=== PATIENT | male | born 1960 | race Caucasian/White ===

== ENCOUNTER 2020-08-17 15:05 | Inpatient (IN) | payer OTHER ==
[~2020-08-17] VITALS: Ht 182.9 cm; Wt 107.4 kg
[2020-08-17] MEDS ORDERED: IV NORMAL SALINE 1000ML BAG 1,000 ML IV ONE (15:30)
[2020-08-17] MEDS ORDERED: ASPIRIN 325 MG TABLET PO ONE (15:30)
[2020-08-17 15:46] LABS: BASO % 1 % (0-3); EOS # 0.1 x10^3/uL (0.0-0.7); EOS % 2 % (0-3); HEMATOCRIT 47.8 % (39.0-53.0); HEMOGLOBIN 16.3 g/dL (13.0-17.5); LYMPH # 2.5 x10^3/uL (1.0-4.8); LYMPH % 38 % (24-48); MEAN CORPUSCULAR HEMOGLOBIN 30 pg (25-35); MEAN CORPUSCULAR HGB CONC 34 g/dL (31-37); MEAN CORPUSCULAR VOLUME 89 fL (79-100); MONO # 0.6 x10^3/uL (0.0-1.1); MONO % 9 % (0-9); NEUT # 3.4 x10^3/uL (1.8-7.7); NEUT % 51 % (31-73); PLATELET COUNT 226 x10^3/uL (140-400); RED BLOOD COUNT 5.35 x10^6/uL (4.30-5.70); RED CELL DISTRIBUTION WIDTH 13.1 % (11.5-14.5); WHITE BLOOD COUNT 6.7 x10^3/uL (4.0-11.0)
[2020-08-17 15:54] LABS: CALCIUM 9.7 mg/dL (8.5-10.1); CREATININE 1.1 mg/dL (0.7-1.3); GFR 68.8; PARTIAL THROMBOPLASTIN TIME 26 SEC (24-38); POTASSIUM 4.1 mmol/L (3.5-5.1); PROTHROMBIN TIME PATIENT 13.2 SEC (11.7-14.0)
[2020-08-17 15:57] LABS: D-DIMER < 0.27 ug/mlFEU (0.00-0.50)
[2020-08-17 16:00] LABS: ALBUMIN 4.4 g/dL (3.4-5.0); ALBUMIN/GLOBULIN RATIO 1.3 (1.0-1.7); MAGNESIUM 2.1 mg/dL (1.8-2.4); TOTAL BILIRUBIN 1.4 mg/dL (0.2-1.0); TOTAL PROTEIN 7.8 g/dL (6.4-8.2)
--- NOTE | 2020-08-17 16:07 | RAD ---
XR CHEST 1V 08/17/2020 3:46 PM INDICATION: Palpitations COMPARISON: None available TECHNIQUE: Portable frontal view of the chest is provided. FINDINGS: The cardiomediastinal silhouette is within normal limits. Lungs are clear. 10 mm nodular opacity in t he right lower lobe favors the nipple shadow. There are no significant pleural effusions. There is no pulmonary vascular congestion. No pneumothora x. No suspicious osseous abnormality. IMPRESSION: There is no acute cardiopulmonary process. 10 mm nodular opacity in the right lower lobe favors nipple shadow. If there is persistent clinical c oncern, repeat imaging with nipple markers could be of benefit. Electronically signed by: Ashley Leach MD (08/17/2020 4:05 PM) [place]
--- NOTE | 2020-08-17 17:11 | PHYS DOC ---
Past Medical History Past Medical History: No Pertinent History Past Surgical History: Other Additional Past Surgical Histo: acl replacement Smoking Status: Never Smoker Alcohol Use: Occasionally Drug Use: None General Adult EDM: Chief Complaint: OTHER COMPLAINTS HPI: HPI: 59 year old male presents with history of concern over irregular heartbeat after undergoing a cardiac echo just prior to arrival. Patient reports he had recently had an appointment with his PCP- Dr. Jain and was noted to have an irregular heartbeat. Patient reports an EKG was then performed by his PCP and was sent to have a cardiac echo performed due to concern for the irregularity. Patient denies SOA or chest pain. Denies palpitations, dizziness, or lightheadedness. Denies fever/chills. Denies known exposure to COVID-19. Review of Systems: Review of Systems: Constitutional: Denies fever or chills Eyes: Denies redness or eye pain HENT: Denies nasal congestion or sore throat Respiratory: Denies cough or shortness of breath Cardiovascular: Denies chest pain or palpitations GI: Denies abdominal pain, nausea, or vomiting : Denies dysuria or hematuria Musculoskeletal: Denies back pain or joint pain Integument: Denies rash or skin lesions Neurologic: Denies headache, focal weakness or sensory changes Complete systems were reviewed and found to be within normal limits, except as documented in this note. Current Medications: Current Medications Medications (Trade) Dose Ordered Sig/[facility] Start Time Stop Time Status Last Admin Dose Admin Aspirin (Jaleesa Aspirin) 325 mg 1X ONCE 08/17/20 15:30 08/17/20 15:40 DC 08/17/20 15:47 325 MG Diltiazem HCl (Cardizem Iv Push) 20 mg 1X ONCE 08/17/20 15:30 08/17/20 15:40 DC 08/17/20 15:48 20 MG Diltiazem HCl 125 mg/Sodium Chloride 125 ml @ 10 mls/hr 1X ONCE 08/17/20 15:30 08/18/20 03:59 08/17/20 15:47 10 MLS/HR Sodium Chloride 1,000 ml @ 1,000 mls/hr 1X ONCE 08/17/20 15:30 08/17/20 16:29 DC 08/17/20 15:48 1,000 MLS/HR Allergies: Allergies: Allergies Coded Allergies Type Severity Reaction Last Updated Verified No Known Drug Allergies 2/5/21 No Physical Exam: PE: Constitutional: Well developed, well nourished, no acute distress, non-toxic appearance HENT: Normocephalic, atraumatic Eyes: Conjunctiva normal, no discharge Neck: Normal range of motion, no tenderness, supple Lungs & Thorax: No respiratory distress, equal chest rise and fall Abdomen: Soft, no tenderness Skin: Warm, dry, no erythema, no rash Extremities: No tenderness, ROM intact, no edema Neurologic: Alert and oriented X 3, normal motor function, normal sensory function, no focal deficits noted Psychologic: Affect normal, judgment normal Current Patient Data: Labs: Laboratory Tests Test 08/17/20 15:35 White Blood Count 6.7 x10^3/uL (4.0-11.0) Red Blood Count 5.35 x10^6/uL (4.30-5.70) Hemoglobin 16.3 g/dL (13.0-17.5) Hematocrit 47.8 % (39.0-53.0) Mean Corpuscular Volume 89 fL (79-100) Mean Corpuscular Hemoglobin 30 pg (25-35) Mean Corpuscular Hemoglobin Concent 34 g/dL (31-37) Red Cell Distribution Width 13.1 % (11.5-14.5) Platelet Count 226 x10^3/uL (140-400) Neutrophils (%) (Auto) 51 % (31-73) Lymphocytes (%) (Auto) 38 % (24-48) Monocytes (%) (Auto) 9 % (0-9) Eosinophils (%) (Auto) 2 % (0-3) Basophils (%) (Auto) 1 % (0-3) Neutrophils # (Auto) 3.4 x10^3/uL (1.8-7.7) Lymphocytes # (Auto) 2.5 x10^3/uL (1.0-4.8) Monocytes # (Auto) 0.6 x10^3/uL (0.0-1.1) Eosinophils # (Auto) 0.1 x10^3/uL (0.0-0.7) Basophils # (Auto) 0.0 x10^3/uL (0.0-0.2) Prothrombin Time 13.2 SEC (11.7-14.0) Prothrombin Time INR 1.0 (0.8-1.1) Activated Partial Thromboplast Time 26 SEC (24-38) D-Dimer (Patricia) < 0.27 ug/mlFEU Sodium Level 141 mmol/L (136-145) Potassium Level 4.1 mmol/L (3.5-5.1) Chloride Level 103 mmol/L (98-107) Carbon Dioxide Level 29 mmol/L (21-32) Anion Gap 9 (6-14) Blood Urea Nitrogen 12 mg/dL (8-26) Creatinine 1.1 mg/dL (0.7-1.3) Estimated GFR (Cockcroft-Gault) 68.8 BUN/Creatinine Ratio 11 (6-20) Glucose Level 107 mg/dL (70-99) H Calcium Level 9.7 mg/dL (8.5-10.1) Magnesium Level 2.1 mg/dL (1.8-2.4) Total Bilirubin 1.4 mg/dL (0.2-1.0) H Aspartate Amino Transferase (AST) 23 U/L (15-37) Alanine Aminotransferase (ALT) 58 U/L (16-63) Alkaline Phosphatase 57 U/L (46-116) Troponin I Quantitative < 0.017 ng/mL (0.000-0.055) VK-Xbi-G-Type Natriuretic Peptide 386 pg/mL (0-124) H Total Protein 7.8 g/dL (6.4-8.2) Albumin 4.4 g/dL (3.4-5.0) Albumin/Globulin Ratio 1.3 (1.0-1.7) Lipase 90 U/L (73-393) Laboratory Tests 08/17/20 15:35 Laboratory Tests 08/17/20 15:35 Vital Signs: Vital Signs Date Time Temp Pulse Resp B/P (MAP) Pulse Ox O2 Delivery O2 Flow Rate FiO2 08/17/20 15:48 160 150/101 08/17/20 15:13 98.6 18 99 Room Air 98.6 EKG: EKG: @1525 Afib RVR at 140bpm, NO ST elevation, QRS 78ms, QT/QTc 292/449ms Radiology/Procedures: Radiology/Procedures: PROCEDURE: PORTABLE CHEST 1V XR CHEST 1V 08/17/2020 3:46 PM INDICATION: Palpitations COMPARISON: None available TECHNIQUE: Portable frontal view of the chest is provided. FINDINGS: The cardiomediastinal silhouette is within normal limits. Lungs are clear. 10 mm nodular opacity in the right lower lobe favors the nipple shadow. There are no significant pleural effusions. There is no pulmonary vascular congestion. No pneumothorax. No suspicious osseous abnormality. IMPRESSION: There is no acute cardiopulmonary process. 10 mm nodular opacity in the right lower lobe favors nipple shadow. If there is persistent clinical concern, repeat imaging with nipple markers could be of benefit. Electronically signed by: Ashley Leach MD (08/17/2020 4:05 PM) [facility] Course & Med Decision Making: Course & Med Decision Making Pertinent Labs and Imaging studies reviewed. (See chart for details) Patient presents with concern for "irregular heartbeat". EKG noted patent with Afib RVR. Cardizem bolus/gtt initiated with rate control. Labs obtained and posted to chart. Troponin and D-dimer WNL. CXR without acute process. Patient requiring admission for further evaluation and treatment. Discussed with Dr. Jain (PCP) who is in agreement with admission. Discussed with Dr. Lin (cardiology) who is in agreement with consultation. Discussed findings and plan with patient, who acknowledges understanding and agreement. Dragon Disclaimer: Dragon Disclaimer: This electronic medical record was generated, in whole or in part, using a voice recognition dictation system. Departure Departure Impression: Primary Impression: Atrial fibrillation with RVR Disposition: ADMITTED INPT THIS HOSP Admitting Physician: Andrew Jain Condition: STABLE Referrals: ANDREW JAIN MD (PCP) Critical Care Time Critical care time was 30 minutes which includes time at bedside, spent in discussion of patient's care with specialists and/or family members, with interpretation of laboratory and/or radiological studies and is exclusive of procedures. COSMO HERNANDEZ DO Aug 17, 2020 17:11
[2020-08-17] MEDS: RIVAROXABAN 10 MG TABLET. PO SCH (18:26)
[2020-08-17 19:40] VITALS: BP 147/102
[2020-08-17] MEDS ORDERED: DOXY100C2 PO (20:55)
[2020-08-17 23:00] VITALS: BP 126/65
[2020-08-18 03:00] VITALS: BP 132/68
[2020-08-18 07:00] VITALS: BP 97/53
[2020-08-18 11:20] VITALS: BP 125/82
--- NOTE | 2020-08-18 12:22 | PDOC ---
Provider Note Date of Service: DATE: 08/18/20 TIME: 12:20 Provider Note [id number] Justifications for Admission Other Justification ANDREW JAIN MD Aug 18, 2020 12:22
--- NOTE | 2020-08-18 14:34 | HP ---
ADMIT DATE: 08/17/2020 CHIEF COMPLAINT: Atrial fibrillation. HISTORY OF PRESENT ILLNESS: The patient is a 59-year-old white male who was seen by me in the office about a week ago for facial rash and was found to have an irregular heart rate which was per EKG, atrial fibrillation with a reasonably controlled rate. Echocardiogram was ordered and he was placed on no meds that time. The echocardiogram was done on day of admission and report is pending. He has had no chest pain, shortness of breath and alcohol use or any other particular symptoms and is unaware that he has dysrhythmia. PAST MEDICAL HISTORY: He is taking doxycycline for recently diagnosed acne rosacea. No other serious medical problems. ALLERGIES: No allergies. MEDICATIONS: No medications. SOCIAL HISTORY: He is a minimal drinker and nonsmoker. He is , physically active, employed. FAMILY HISTORY: Unremarkable. REVIEW OF SYSTEMS: No other specific complaints including shortness of breath, chest pain, dizziness, presyncope or other complaints. OBJECTIVE: ENT: All unremarkable. NECK: No masses, nodes or bruits. LUNGS: Clear. CARDIOVASCULAR: Irregular rate, rate 90-110. No murmurs heard. ABDOMEN: Benign. EXTREMITIES: Good pedal and radial pulses. No joint or skin lesions at this time. Facial rash is cleared. NEUROLOGIC: Physiologic. ASSESSMENT: Atrial fibrillation, etiology and duration undetermined. His CHADS-VASc 2 risks factors are low and he is not on anticoagulation at this time. PLAN: We will switch to oral diltiazem at this time. We will continue Xarelto dose for now in advance of the possibility of outpatient cardioversion. Report of the echocardiogram is pending at this time as well. Need to make sure there is no sign of PFO or occult mitral valve disease. ANDREW JAIN MD DR: IZZY/magan JOB#: [id number] / [id number]
[2020-08-18 15:00] VITALS: BP 137/89
[2020-08-18] MEDS ORDERED: AMIODARONE 150 MG in IV DEXTROSE 5% 100ML 100 ML IV ONE (15:00)
[2020-08-18] MEDS ORDERED: RIVAROXABAN 10 MG TABLET. PO ONE (15:00)
[2020-08-18] MEDS: RIVAROXABAN 10 MG TABLET. PO SCH (15:28)
[2020-08-18] MEDS: AMIODARONE HCL 200 MG TABLET. PO SCH (15:28)
--- NOTE | 2020-08-18 16:14 | PDOC2 ---
CARDIOLOGY CONSULT NOTE DATE OF SERVICE: DATE: 08/18/20 TIME: 16:12 CHIEF COMPLAINT: Abnormal echocardiogram HPI: Aleksey is a 59-year-old man who was sent to the ER yesterday after an abnormal echocardiogram. Last week he was noted to have irregular heart tones and was sent for an echocardiogram after his PCP felt that he was noted to be in atrial fibrillation. This was confirmed on the EKG upon admission. Due to A. fib with RVR he was admitted for further evaluation and treatment in the setting of an abnormal echocardiogram with ejection fraction of 30 to 35%. He currently denies any symptoms whatsoever. He has no risk factors such as hypertension, sleep apnea or age. PMHX: None SOCHX: Denies any alcohol, tobacco or illicit drug use. 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 He lives alone. FAMHX: Noncontributory. CURRENT MEDS: Current Medications Medications (Trade) Dose Ordered Sig/Simon Route PRN Reason Start Time Stop Time Status Last Admin Dose Admin Rivaroxaban (Xarelto) 20 mg DAILYWSUP PO 08/17/20 18:00 08/18/20 15:28 Diltiazem HCl (Cardizem 24hr Cd) 240 mg DAILY PO 08/18/20 12:30 08/18/20 13:31 Amiodarone HCl 150 mg/Dextrose 103 ml @ 618 mls/hr 1X ONCE IV 08/18/20 15:00 08/18/20 15:09 DC 08/18/20 15:27 Amiodarone HCl (Cordarone) 400 mg DAILY PO 08/18/20 15:30 08/18/20 15:28 Rivaroxaban (Xarelto) 10 mg ONCE ONCE PO 08/18/20 15:00 08/18/20 15:13 DC 08/18/20 15:27 ALLERGIES: Allergies Coded Allergies Type Severity Reaction Last Updated Verified No Known Drug Allergies 08/17/20 No ROS: Negative for 10-14 systems reviewed unless otherwise mentioned above in HPI PHYSICAL EXAM: Vital Signs/I&O: Vital Signs Date Time Temp Pulse Resp B/P (MAP) Pulse Ox O2 Delivery O2 Flow Rate FiO2 08/18/20 15:28 98 125/82 08/18/20 15:00 98.1 18 97 Room Air 98.1 I & O 08/17/20 08/17/2008/18/21 15:00 23:00 07:00 Intake Total 1137.69 ml 47 ml Output Total 1050 ml Balance 1137.69 ml -1003 ml Physical Exam: The patient appeared well nourished and normally developed. Head exam is unremarkable. No scleral icterus or corneal arcus noted. Neck is without jugular venous distension, thyromegaly, or carotid bruits. Carotid upstrokes are brisk bilaterally. Lungs are clear to auscultation and percussion. Cardiac exam reveals the PMI to be normally sized and situated. Rhythm is irregular. First and second heart sounds normal. No murmurs, rubs or gallops. Abdominal exam reveals normal bowel sounds, no masses, no organomegaly and no aortic enlargement. Extremities are nonedematous and both femoral and pedal pulses are normal. Msk: No traumua Neuro: No focal deficits DIAGNOSTIC TESTING: EKG, telemetry reviewed. Echo reviewed. Labs reviewed. ASSESSMENT: 1. New onset atrial fibrillation with rapid ventricular response currently suboptimally controlled PLAN: 1. I discussed with the patient the prognosis, etiology and various treatment options for atrial fibrillation. Specifically we discussed conservative management with medications versus cardioversion. He wishes to continue medical therapy. Plan for initiation of amiodarone for better rate control and to help attain sinus rhythm. Continue anticoagulation for the next 3 months or so and reassess his A. fib burden and need for cardioversion on outpatient basis. We will see him in the office in 6 weeks. We will plan to keep him for another 24 hours for better rate control as at rest he still has a heart rate of 1 20-1 30. DIONICIO AGUILAR MD Aug 18, 2020 16:14
[2020-08-18 19:35] VITALS: BP 132/89
[2020-08-18 23:30] VITALS: BP 122/76
[2020-08-19 03:40] VITALS: BP 121/87
[2020-08-19 07:00] VITALS: BP 124/77
[2020-08-19] MEDS: AMIODARONE HCL 200 MG TABLET. PO SCH (08:23)
--- NOTE | 2020-08-19 10:15 | PDOC ---
Provider Note Date of Service: DATE: 08/19/20 TIME: 10:12 Provider Note [id number] Justifications for Admission Other Justification ANDREW JAIN MD Aug 19, 2020 10:15
[2020-08-19 10:18] VITALS: BP 135/89
[2020-08-19] MEDS ORDERED: METO50TA6 PO (10:22)
[2020-08-19] MEDS ORDERED: RIVA20TA2 PO (10:23)
--- NOTE | 2020-08-19 10:33 | DS ---
DATE OF DISCHARGE: 08/19/2020 CHIEF COMPLAINT: Atrial fibrillation with rapid ventricular response. HOSPITAL SUMMARY: This is a 59-year-old white male with known preexisting atrial fibrillation of unknown duration, had an echocardiogram on the day of admission, which showed mildly increased heart rate and ejection fraction reduced at 30-35%. There was no valvular disease or pericardial disease noted. Laboratory studies and x-ray were clear as well and preexisting labs including TSH were normal. He was admitted, given IV diltiazem, followed by oral diltiazem and Dr. Lin added amiodarone as well. He is on Xarelto now, even though he is relatively low risk for emboli and he will be followed as an outpatient. We used the of beta robin and check him 1 week to see if his heart rate improves and repeat an echo at a later time. He may need cardioversion later if his atrial fibrillation persists. Reduced ejection fraction could be related to the atrial fibrillation itself and will be followed as an outpatient and he may need to consider cardiac scan or even a catheterization if his ejection fraction persists low despite normalization of heart rate. He has no notable symptoms of angina at this time, however. He is comfortable with this plan at this point. FINAL DIAGNOSES: 1. Atrial atrial fibrillation with rapid ventricular response, idiopathic. 2. Dilated cardiomyopathy, [id number], etiology undetermined. OPERATIONS, PROCEDURES, COMPLICATIONS: None. CONSULTATIONS: Yossi Lin MD DISPOSITION: He will take metoprolol 50 mg twice a day and Xarelto 20 mg daily and amiodarone dosage per Dr. Lin. I will see him in the office in 5 days and follow up with heart rate and then do another echocardiogram at a later time when medically appropriate. ANDREW JAIN MD DR: IZZY/magan JOB#: [id number] / [id number]
[2020-08-19] MEDS ORDERED: METOPROLOL TART IMMED RELEASE 50 MG TABLET. PO SCH (11:00)
[2020-08-19] MEDS ORDERED: AMIO400T5 PO (12:54)
--- NOTE | 2020-08-19 13:15 | NUR ---
Discharge Note: STEPHANIE GAN Discharge instructions and discharge home medications reviewed with Patient and a copy given. All questions have been answered and understanding verbalized. The following instructions and handouts were given: amiodarone, metoprolol, rivaroxaban, and atrial fibrillation. Patient discharged to home with self care via ambulatory.
--- NOTE | 2020-08-21 04:53 | EKG ---
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
== END 2020-08-19 13:15 | disposition home or self-care (01) | DRG 310 ==
LOC: ER 15:05 → 2 SOUTH 17:00
PROVIDERS: ADMIT Family Medicine; ATTEND Family Medicine
DX: I48.91 Unspecified atrial fibrillation (principal); I42.0 Dilated cardiomyopathy; Z79.01 Long term (current) use of anticoagulants; Z79.899 Other long term (current) drug therapy
CPT/HCPCS: 36415; 71045; 80053; 83690; 83735; 83880; 84484; 85025; 85379; 85610; 85730; 93005; 96365; 96376; J0282; J3490; J7030; J7060; 99291-25; G0378

== ENCOUNTER → 2020-08-17 | Outpatient (CLI) | payer OTHER ==
[~2020-08-17] MED LIST: AMIO400T5 PO; DOXY100C2 PO; METO50TA6 PO; RIVA20TA2 PO
--- NOTE | 2020-08-17 16:16 | CARD ---
MR#: [id number] Date of Study: 08/17/2020 Ordering Physician: ANDREW JAIN, Referring Physician: ANDREW JAIN Tech: Juana Malcolm EMILIA APPROVED REPORT EXAM: Two-dimensional and M-mode echocardiogram with Doppler and color Doppler. Other Information Quality : AverageHR: 121bpm Rhythm : Atrial Fibrillation INDICATION Atrial Fibrillation 2D DIMENSIONS RVDd4.5 (2.9-3.5cm)Left Atrium(2D)5.1 (1.6-4.0cm) IVSd1.2 (0.7-1.1cm)Aortic Root(2D)3.5 (2.0-3.7cm) LVDd4.9 (3.9-5.9cm)LVOT Diameter2.6 (1.8-2.4cm) PWd1.3 (0.7-1.1cm)LVDs4.3 (2.5-4.0cm) FS (%) 12.1 %SV30.0 ml LVEF(%)26.0 (>50%) Aortic Valve AoV Peak Rafi.120.3cm/Kriss Peak GR.7.9mmHg LVOT Peak Rafi.75.7cm/sAVA (VMAX)3.27cm2 Pulmonary Valve PV Peak Jecnpdzp943.5cm/s Tricuspid Valve TR P. Aewvziow788ke/sTR Peak Gr.28mmHg LEFT VENTRICLE The left ventricle is normal size. There is mild concentric left ventricular hypertrophy. The ejectio n fraction is moderately impaired. Estimated ejection fraction 35-40%. There is global hypokinesis of the left ventricle. Tissue Doppler imaging reveals moderate left ventricular diastolic dysfunction. RIGHT VENTRICLE The right ventricle is normal size. There is normal right ventricular wall thickness. The right ventr icular systolic function is normal. ATRIA The left atrium is moderately dilated. The right atrium is mildly dilated. The interatrial septum is intact with no evidence for an atrial septal defect or patent foramen ovale as noted on 2-D or Dopple r imaging. AORTIC VALVE The aortic valve is normal in structure and function. Doppler and Color Flow revealed no significant aortic regurgitation. There is no significant aortic valvular stenosis. MITRAL VALVE The mitral valve is normal in structure and function. There is no evidence of mitral valve prolapse. There is no mitral valve stenosis. Doppler and Color-flow revealed moderate mitral regurgitation. TRICUSPID VALVE The tricuspid valve is normal in structure and function. Doppler and Color Flow revealed mild tricusp id regurgitation. Estimated PAP 33 mmHg. There is no tricuspid valve stenosis. PULMONIC VALVE Doppler and Color Flow revealed no pulmonic valvular regurgitation. There is no pulmonic valvular saranya nosis. GREAT VESSELS The aortic root is normal in size. The IVC is normal in size and collapses >50% with inspiration. PERICARDIAL EFFUSION There is no evidence of significant pericardial effusion. Critical Notification Critical Value: No <Conclusion> The ejection fraction is moderately impaired. Estimated ejection fraction 35-40%. There is global hypokinesis of the left ventricle. Doppler and Color-flow revealed moderate mitral regurgitation. Signed by : Yossi Lin, Electronically Approved : 08/17/2020 16:15:54
== END ==
LOC: ECHO 13:58
PROVIDERS: ATTEND Family Medicine
DX: I08.1 Rheumatic disorders of both mitral and tricuspid valves (principal); I48.11 Longstanding persistent atrial fibrillation
CPT/HCPCS: 93306

== ENCOUNTER → 2020-10-12 | Outpatient (CLI) | payer OTHER ==
[~2020-10-12] MED LIST changes: +REGADENOSON 0.4 MG/5 ML DISP.SYRIN. IV ONE
--- NOTE | 2020-10-12 14:35 | RAD ---
MR#: [id number] Date of Study: 10/12/2020 Ordering Physician: AMANDA WARD, Referring Physician: MARJORIE ALMONTE Tech: NILDA Padilla ARRT (R) (N) APPROVED REPORT Test Type: Pharmacological Stress Nurse/Tech: Yashira Oliva R.N. Test Indications: afib Cardiac History: htn, Medications: see ehr Medical History: see ehr Resting ECG: afib Resting Heart Rate: 90 bpm Resting Blood Pressure: 152/82mmHg Pretest Chest Pain: No chest pain Nurse/Tech Notes lungs cta, heart tones irregular Consent: The procedure was explained to the patient in lay terms. Informed consent was witnessed. Bernabe eout was entered into [employer]. History and Stress Test performed by RT Danielle (R) (N) Pharm. Details Pharmacologic stress testing was performed using 0.4mg per 5ml of regadenoson given intravenously ove r 7-10 seconds. Stress Symptoms No chest pain or symptoms. POST EXERCISE Reason for Termination: Infusion complete Target HR: No Max HR: 118 bpm Max Blood Pressure: 153/85mmHg Chest Pain: No. Arrhythmia: Yes. unifocal PVCs noted ST Change: Yes. Non-specific st/t changes INTERPRETATION Stress EKG Conclusion: No evidence of stress induced EKG changes to suggest ischemia. Imaging Protocol IMAGE PROTOCOL: Rest Tc-99m/stress Tc-99m 1 day Rest: Stress: Viability: Radiopharm.Tc99m YjmqrsaltUa03m Sestamibi Spyc98wJi 31mCi Img Date 10/12/2020 10/12/2020 Inj-Img Urck97ohf. 60min. Rest Admin Site:IV - Right AntecubitalAdministrator:NILDA Padilla ARRT (R)(N) Stress Admin Site: IV - Right AntecubitalAdministrator: RT Kierra Santos)(N) STRESS DATA End Diast. Vol.124.0mlLVEDV index BSA54.0ml End Syst. Vol.66.0mlLVESV index BSA29.0ml Myocardial Ibkq527.0gEject. Erydmfrx75.0% Stress Scores Regional WT2.00Summed WT23.00 Regional WM0.00Summed WM14.00 The rest and stress images show normal perfusion, normal contraction and thickening. LV Perf. Quant 17 Seg. SSS0.00 17 Seg. SRS0.00 17 Seg. SDS0.00 Stress Defect Extent (% LAD)2.50Rest Defect Extent (% LAD)0.00Rev. Defect Extent (% LAD)1.30 Stress Defect Extent (% LCX) 0.00Rest Defect Extent (% LCX)0.00Rev. Defect Extent (% LCX)0.00 Stress Defect Extent (% RCA)0.00Rest Defect Extent (% RCA)0.00Rev. Defect Extent (% RCA)0.00 Stress Defect Extent (% CLAUDE)0.90Rest Defect Extent (% CLAUDE)0.00Rev. Defect Extent (% CLAUDE)0.40 Other Information Quality:Average Risk Assessment: Low Risk Conclusion 1. No evidence of stress induced EKG changes. 2. Normal perfusion at stress/rest. 3. Low normal EF at 54% 4. TID at upper limits of normal at 1.3 but given lack of EKG changes, perfusion defects and low norm al EF, lower suspicion for multivessel ischemia. 5. Low risk study overall. Signed by : Yossi Lin, Electronically Approved : 10/12/2020 14:35:21
== END ==
LOC: NM 09:26
PROVIDERS: ATTEND Internal Medicine Cardiovascular Disease
DX: I48.91 Unspecified atrial fibrillation (principal); I10 Essential (primary) hypertension
CPT/HCPCS: 78452; 93017; A9500; J2785

== ENCOUNTER 2021-03-05 00:31 | Emergency (ER) | payer OTHER ==
[~2021-03-05] VITALS: Ht 180.3 cm; Wt 105.5 kg
[~2021-03-05 00:31] MED LIST changes: -DOXY100C2 PO; +DOXY100C3 PO; -REGADENOSON 0.4 MG/5 ML DISP.SYRIN. IV ONE
[2021-03-05] MEDS ORDERED: LABETALOL 20 MG/4 ML DISP.SYRIN. IVP ONE (00:45)
--- NOTE | 2021-03-05 00:51 | PHYS DOC ---
Past Medical History Past Medical History: No Pertinent History Past Surgical History: Other Additional Past Surgical Histo: acl replacement Smoking Status: Never Smoker Alcohol Use: Occasionally Drug Use: None General Adult EDM: Chief Complaint: HYPERTENSION HPI: HPI: Patient is a 60 year old male who presents with subjective numbness to his right face, right arm, right lower extremity starting at 10 PM while watching television. Has been constant since, but slowly improving. He has checked his blood pressure and it has been high. He denies any weakness, coordination difficulty, speech difficulty, or vision changes. He does not have a history of similar. He does have a history of HTN, and takes metoprolol for this. Review of Systems: Review of Systems: Constitutional: Denies fever or chills. [] Eyes: Denies change in visual acuity. [] HENT: Denies nasal congestion or sore throat. [] Respiratory: Denies cough or shortness of breath. [] Cardiovascular: Denies chest pain or edema. [] GI: Denies abdominal pain, nausea, vomiting, bloody stools or diarrhea. [] : Denies dysuria. [] Musculoskeletal: Denies back pain or joint pain. [] Integument: Denies rash. [] Neurologic: Denies headache, focal weakness. Reports right-sided sensory changes. [] Endocrine: Denies polyuria or polydipsia. [] Lymphatic: Denies swollen glands. [] Psychiatric: Denies depression or anxiety. [] Heart Score: C/O Chest Pain: No Risk Factors: Risk Factors: DM, Current or recent (<one month) smoker, HTN, HLP, family history of CAD, obesity. Risk Scores: Score 0 - 3: 2.5% MACE over next 6 weeks - Discharge Home Score 4 - 6: 20.3% MACE over next 6 weeks - Admit for Clinical Observation Score 7 - 10: 72.7% MACE over next 6 weeks - Early Invasive Strategies Allergies: Allergies: Allergies Coded Allergies Type Severity Reaction Last Updated Verified No Known Drug Allergies 08/17/20 No Physical Exam: PE: Constitutional: Well developed, well nourished, no acute distress, non-toxic appearance. [] HENT: Normocephalic, atraumatic, bilateral external ears normal, oropharynx moist, no oral exudates, nose normal. [] Eyes: PERRLA, EOMI, conjunctiva normal, no discharge. [] Neck: Normal range of motion, no tenderness, supple, no stridor. [] Cardiovascular:Heart rate regular rhythm, no murmur [] Lungs & Thorax: Bilateral breath sounds clear to auscultation [] Abdomen: Bowel sounds normal, soft, no tenderness, no masses, no pulsatile masses. [] Skin: Warm, dry, no erythema, no rash. [] Back: No tenderness, no CVA tenderness. [] Extremities: No tenderness, no cyanosis, no clubbing, ROM intact, no edema. [] Neurologic: Alert, oriented to person, place, time. Speech normal. No dysarthria or aphasia. Face symmetric. EOMs intact. Visual archer intact. Sensation grossly intact in face, upper, and lower extremities. No drift in all 4 extremities. NIH = 0 Psychologic: Affect normal, judgement normal, mood normal. [] EKG: EKG: Sinus rhythm. Rate 77. Left axis deviation. Right bundle pattern, incomplete. No acute ischemic changes. [] Radiology/Procedures: Radiology/Procedures: [] Impression: [facility] [address] [place] [address] IMAGING REPORT Signed PATIENT: STEPHANIE GAN ACCOUNT: [id number] : 1960 LOCATION: ER AGE: 60 SEX: M EXAM STATUS: REG ER ORD. PHYSICIAN: TONY MUHAMMAD MD REASON: Right face, arm, hand numbness (subjective) PROCEDURE: CT HEAD WO CONTRAST PQRS Compliance Statement: One or more of the following individualized dose reduction techniques were utilized for this examination: 1. Automated exposure control 2. Adjustment of the mA and/or kV according to patient size 3. Use of iterative reconstruction technique CT HEAD WITHOUT CONTRAST History: Reason: Right face, arm, hand numbness (subjective) / Spl. Instructions: / History: Comparison: None. Procedure: Axial images are obtained of the head from the skull base through the vertex without IV contrast. Findings: The ventricles and sulci are normal for the patient's age. No mass-effect, midline shift, hemorrhage, extra-axial fluid collection, or obvious acute infarction is identified. Basilar cisterns are patent. Bone windows demonstrate no acute calvarial abnormality. The visualized paranasal sinuses are clear. Mastoid air cells are well aerated. IMPRESSION: No acute intracranial abnormality. Electronically signed by: Jason Crook MD (03/05/2021 2:02 AM) [facility] DICTATED and SIGNED BY: JASON CROOK MD DATE: 03/05/21 [id number] [facility] [address] [place] [address] IMAGING REPORT Signed PATIENT: STEPHANIE GAN ACCOUNT: [id number] : 1960 LOCATION: ER AGE: 60 SEX: M EXAM STATUS: REG ER ORD. PHYSICIAN: TONY MUHAMMAD MD REASON: Right face, arm, hand numbness (subjective);OMNI 300, 75ML PROCEDURE: CT ANGIOGRAPHY HEAD AND NECK PQRS Compliance Statement: One or more of the following individualized dose reduction techniques were ut ilized for this examination: 1. Automated exposure control 2. Adjustment of the mA and/or kV according to patient size 3. Use of iterative reconstruction technique CTA HEAD AND NECK W/WO CONTRAST Clinical Indication: Reason: Right face, arm, hand numbness (subjective); Comparison: None. Technique: Helical CT imaging from inferior to the aortic arch to the skull vertex is performed after 75 cc of Omnipaque [address] angiogram protocol. 3-D MIP reconstructions of the cervical carotid arteries and [place] of [place] are performed. PQRS Compliance Statement - Stenosis calculations for CT, MR and conventional angiography are based upon measurement of the distal ICA diameter in accordance with the NASCET methodology. Stenosis calculations for carotid ultrasound studies are derived from validated velocity criteria which are known to correlate with the NASCET methodology. Findings: Aortic arch branches are patent. The common carotid arteries, carotid bifurcations, and cervical internal carotid arteries are patent. The cervical vertebral arteries are patent. There is no evidence of dissection. The distal vertebral arteries are codominant. The basilar artery is patent. The superior cerebellar arteries and the posterior cerebral arteries are patent. There is atherosclerotic calcification of the bilateral cavernous internal carotid arteries without significant stenosis. The anterior cerebral arteries are patent. The middle cerebral arteries are patent. No significant intracranial stenosis or intracranial aneurysm is identified. The skull vertex is incompletely imaged. The visualized dural venous sinuses are unremarkable. No abnormal enhancement in the brain parenchyma is identified. There is no cervical adenopathy. The parotid, submandibular, and thyroid glands are symmetric. The upper lungs are clear. The cervical spine alignment is maintained. There is degenerative spondylosis. There is multilevel neural foraminal narrowing. IMPRESSION: 1. No large vessel occlusion. 2. No significant stenosis of the cervical carotid or vertebral arteries. Electronically signed by: Jasno Crook MD (03/05/2021 2:39 AM) [facility] DICTATED and SIGNED BY: JASON CROOK MD DATE: 03/05/21 [id number] Course & Med Decision Making: Course & Med Decision Making Pertinent Labs and Imaging studies reviewed. (See chart for details) Patient a 60-year-old male with history of HTN and afib on xarelto who presents with subjective right-sided sensory changes for the past 2 hours and 45 minutes. They are slowly improving. On arrival is hypertensive 220/120s. NIH =0. Given the symptoms do follow vascular territory will obtain CT/CTA of the head and neck. With his hypertension greater than 220s will treat with IV labetalol 10 mg. Not a tpa candidate given very mild symptoms and negative NIH. 0051 BP now improved. Initially 180s, most recently 140s SBP. Symptoms now gone, concern for TIA and/or hypertensive emergency. CT head WO is read as normal. Awaiting CTA 0231 CTA without any stenosis or occlusion. He clearly has modifiable stroke risk factors with HTN and not on a statin currently. Feel admission for TIA/HTN emergency work up is warranted, however, patient is unwilling to stay today despite risks discussed of having a stroke with permanent deficits. He will be leaving AMA, but I will call to discuss with a neurologist to see if we should consider starting any statin, antiplatelets, or antihypertensives from the ED. 0303 Dr. Potts, neurology, did not recommend starting a statin or antiplatelet empirically. He did think starting lisinopril would be appropriate given his initial BP. Patient will leave AMA, I will write a prescription for lisinopril 10 mg daily. He was encouraged to f/u with his PCP this week. Return precautions discussed. 0316 Galo Disclaimer: Galo Disclaimer: This electronic medical record was generated, in whole or in part, using a voice recognition dictation system. Departure Departure Impression: Primary Impression: TIA (transient ischemic attack) Additional Impression: Hypertensive emergency Disposition: LEFT AGAINST MEDICAL ADVICE Admitting Physician: HUNG Rogers) Condition: STABLE Referrals: ANDREW JAIN MD (PCP) Patient Instructions: Transient Ischemic Attack Additional Instructions: I am concerned that you had a TIA. This is a lack of blood flow transiently to your brain. Your blood pressure may have been the major contributing factor. I like to start you on a blood pressure medication called lisinopril 10 mg daily to help lower your blood pressure. Please note that lisinopril in rare cases can cause cough and/or swelling of the lips or tongue. If you develop lip or tongue swelling please discontinue this medication immediately. Please follow-up with your PCP to ensure that your blood pressures are closely tracked. Our neurologist also recommended that you get a lipid panel with your PCP to determine whether you need to be on a cholesterol medication. If you have worsening symptoms please return to the emergency department immediately. Potential symptoms of a stroke could include numbness, weakness, speech difficulty, vision changes. Scripts Lisinopril (LISINOPRIL) 10 Mg Tablet 1 TAB PO DAILY, #30 TAB 5 Refills Prov: TONY MUHAMMAD MD 03/05/21 TONY MUHAMMAD MD Mar 05, 2021 00:51
[2021-03-05 00:52] LABS: BASO # 0.1 x10^3/uL (0.0-0.2); BASO % 1 % (0-3); EOS # 0.2 x10^3/uL (0.0-0.7); EOS % 2 % (0-3); HEMOGLOBIN 15.1 g/dL (13.0-17.5); LYMPH # 4.1 x10^3/uL (1.0-4.8); LYMPH % 45 % (24-48); MEAN CORPUSCULAR HEMOGLOBIN 32 pg (25-35); MEAN CORPUSCULAR HGB CONC 35 g/dL (31-37); MEAN CORPUSCULAR VOLUME 91 fL (79-100); MONO # 1.1 x10^3/uL (0.0-1.1); MONO % 13 % (0-9); NEUT # 3.5 x10^3/uL (1.8-7.7); NEUT % 39 % (31-73); PLATELET COUNT 229 x10^3/uL (140-400); RED BLOOD COUNT 4.75 x10^6/uL (4.30-5.70); RED CELL DISTRIBUTION WIDTH 12.2 % (11.5-14.5)
[2021-03-05] MEDS ORDERED: IOHEXOL 300 MG/ML 100ML VIAL. IV ONE (01:00)
[2021-03-05] MEDS ORDERED: CONTRAST GIVEN. MC PRN (01:00)
[2021-03-05 01:02] LABS: CALCIUM 9.3 mg/dL (8.5-10.1); CREATININE 1.2 mg/dL (0.7-1.3); POTASSIUM 3.5 mmol/L (3.5-5.1)
[2021-03-05 01:08] LABS: ALBUMIN 4.1 g/dL (3.4-5.0); ALBUMIN/GLOBULIN RATIO 1.2 (1.0-1.7); TOTAL BILIRUBIN 0.4 mg/dL (0.2-1.0); TOTAL PROTEIN 7.4 g/dL (6.4-8.2)
--- NOTE | 2021-03-05 01:32 | EKG ---
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
--- NOTE | 2021-03-05 02:04 | RAD ---
PQRS Compliance Statement: One or more of the following individualized dose reduction techniques were utilized for this examinat ion: 1. Automated exposure control 2. Adjustment of the mA and/or kV according to patient size 3. Use of iterative reconstruction technique CT HEAD WITHOUT CONTRAST History: Reason: Right face, arm, hand numbness (subjective) / Spl. Instructions: / History: Comparison: None. Procedure: Axial images are obtained of the head from the skull base through the vertex without IV co ntrast. Findings: The ventricles and sulci are normal for the patient's age. No mass-effect, midline shift, hemorrhage, extra-axial fluid collection, or obvious acute infarction is identified. Basilar cisterns are patent. Bone windows demonstrate no acute calvarial abnormality. The visualized paranasal sinuses are clear. Mastoid air cells are well aerated. IMPRESSION: No acute intracranial abnormality. Electronically signed by: Jason Crook MD (03/05/2021 2:02 AM) [facility]
--- NOTE | 2021-03-05 02:42 | RAD ---
PQRS Compliance Statement: One or more of the following individualized dose reduction techniques were utilized for this examinat ion: 1. Automated exposure control 2. Adjustment of the mA and/or kV according to patient size 3. Use of iterative reconstruction technique CTA HEAD AND NECK W/WO CONTRAST Clinical Indication: Reason: Right face, arm, hand numbness (subjective); Comparison: None. Technique: Helical CT imaging from inferior to the aortic arch to the skull vertex is performed after 75 cc of Omnipaque [address] angiogram protocol. 3-D MIP reconstructions of the cervi lester carotid arteries and [place] of [place] are performed. PQRS Compliance Statement - Stenosis calculations for CT, MR and conventional angiography are based u jacinda measurement of the distal ICA diameter in accordance with the NASCET methodology. Stenosis calcu lations for carotid ultrasound studies are derived from validated velocity criteria which are known t o correlate with the NASCET methodology. Findings: Aortic arch branches are patent. The common carotid arteries, carotid bifurcations, and cervical inte rnal carotid arteries are patent. The cervical vertebral arteries are patent. There is no evidence of dissection. The distal vertebral arteries are codominant. The basilar artery is patent. The superior cerebellar arteries and the posterior cerebral arteries are patent. There is atherosclerotic calcifi cation of the bilateral cavernous internal carotid arteries without significant stenosis. The anterio r cerebral arteries are patent. The middle cerebral arteries are patent. No significant intracranial stenosis or intracranial aneurysm is identified. The skull vertex is incompletely imaged. The visualized dural venous sinuses are unremarkable. No abn ormal enhancement in the brain parenchyma is identified. There is no cervical adenopathy. The parotid , submandibular, and thyroid glands are symmetric. The upper lungs are clear. The cervical spine alig nment is maintained. There is degenerative spondylosis. There is multilevel neural foraminal narrowin g. IMPRESSION: 1. No large vessel occlusion. 2. No significant stenosis of the cervical carotid or vertebral arteries. Electronically signed by: Jason Crook MD (03/05/2021 2:39 AM) [facility]
[2021-03-05] MEDS ORDERED: LISI10TA16 PO (03:16)
[2021-03-05 03:30] VITALS: BP 181/99
== END 2021-03-05 03:36 | disposition left against medical advice (07) ==
LOC: ER 00:31
DX: G45.9 Transient cerebral ischemic attack, unspecified (principal); I16.1 Hypertensive emergency
CPT/HCPCS: 36415; 70450; 70496; 70498; 80053; 84484; 85025; 93005; 96374; 99285; J3490

== ENCOUNTER → 2021-04-29 | Outpatient (CLI) | payer OTHER ==
[~2021-04-29] MED LIST changes: +LISI10TA16 PO
--- NOTE | 2021-04-29 16:31 | CARD ---
MR#: [id number] Date of Study: 04/29/2021 Ordering Physician: DIONICIO AGUILAR, Referring Physician: DIONICIO AGUILAR, Tech: Juana Malcolm [facility] APPROVED REPORT EXAM: Two-dimensional and M-mode echocardiogram with Doppler and color Doppler. Other Information Quality : AverageHR: 68bpm Rhythm : NSR INDICATION Atrial Fibrillation RISK FACTORS Hypertension 2D DIMENSIONS RVDd3.2 (2.9-3.5cm)Left Atrium(2D)4.1 (1.6-4.0cm) IVSd1.0 (0.7-1.1cm)Aortic Root(2D)3.5 (2.0-3.7cm) LVDd4.7 (3.9-5.9cm)LVOT Diameter2.6 (1.8-2.4cm) PWd1.0 (0.7-1.1cm)LVDs3.4 (2.5-4.0cm) FS (%) 28.1 %SV56.6 ml Aortic Valve AoV Peak Rafi.161.2cm/sAoV VTI28.5cm AO Peak GR.10.4mmHgLVOT Peak Rafi.108.3cm/s AO Mean GR.4mmHgAVA (VMAX)3.64cm2 Mitral Valve MV E Aapissnn75.2cm/sMV DECEL ZZME342kd MV A Lkjiagru65.9cm/sE/A Ratio0.9 Pulmonary Valve PV Peak Dyoslbtx008.5cm/s Tricuspid Valve TR P. Iecvugfz020ed/sTR Peak Gr.22mmHg LEFT VENTRICLE The left ventricle is normal size. There is normal left ventricular wall thickness. The left ventricu lar systolic function is normal. Left ventricular ejection fraction is 50 to 55%. There is normal LV segmental wall motion. RIGHT VENTRICLE The right ventricle is normal size. There is normal right ventricular wall thickness. The right ventr icular systolic function is normal. ATRIA The left atrium size is normal. The right atrium size is normal. The interatrial septum is intact wit h no evidence for an atrial septal defect or patent foramen ovale as noted on 2-D or Doppler imaging. AORTIC VALVE The aortic valve is normal in structure and function. Doppler and Color Flow revealed no significant aortic regurgitation. There is no significant aortic valvular stenosis. MITRAL VALVE The mitral valve is normal in structure and function. There is no evidence of mitral valve prolapse. There is no mitral valve stenosis. Doppler and Color-flow revealed trace mitral regurgitation. TRICUSPID VALVE The tricuspid valve is normal in structure and function. Doppler and Color Flow revealed trace tricus pid regurgitation. Estimated PAP 25 mmHg. There is no tricuspid valve stenosis. PULMONIC VALVE The pulmonary valve is normal in structure and function. Doppler and Color Flow revealed no pulmonic valvular regurgitation. GREAT VESSELS The aortic root is normal in size. The ascending aorta is normal in size. The IVC is normal in size a nd collapses >50% with inspiration. PERICARDIAL EFFUSION There is no evidence of significant pericardial effusion. Critical Notification Critical Value: No <Conclusion> The left ventricle is normal size. The left ventricular systolic function is normal. Left ventricular ejection fraction is 50 to 55%. Doppler and Color Flow revealed no significant aortic regurgitation. There is no significant aortic valvular stenosis. Doppler and Color-flow revealed trace mitral regurgitation. Doppler and Color Flow revealed trace tricuspid regurgitation. Estimated PAP 25 mmHg. Signed by : Victor Hugo Blanton MD Electronically Approved : 04/29/2021 16:30:53
== END ==
LOC: ECHO 10:39
PROVIDERS: ATTEND Internal Medicine Cardiovascular Disease
DX: I48.91 Unspecified atrial fibrillation (principal); I10 Essential (primary) hypertension
CPT/HCPCS: 93306

== ENCOUNTER → 2021-07-08 | Outpatient (CLI) | payer OTHER ==
[~2021-07-08] MED LIST changes: +LIDOCAINE 1% PF 5 ML VIAL. ONE
--- NOTE | 2021-07-08 13:34 | CARD ---
MR#: [id number] Date of Study: 07/08/2021 Ordering Physician: YOSSI AGUILAR, Referring Physician: YOSSI AGUILAR, Tech: APPROVED REPORT EXAM Loop Recorder Indication: Atrial fibrillation 60-year-old male presented to the office today for a planned loop recorder implantation in the settin g of atrial fibrillation for monitoring of A. fib burden. After proper informed consent the left noman st was prepped and draped in usual sterile fashion. Under 1% lidocaine local anesthesia a 0.5 inch i ncision was made in the left 4th intercostal space. A subcutaneous tunnel was then created and a Med Striivnic implantable loop recorder was then placed and the incision was then closed with Steri-Strips. Normal amplitudes were noted. No acute complications. CONCLUSION 1. Successful plantation of a Medtronic loop recorder for monitoring of atrial fibrillation burden Signed by : Yossi Aguilar, Electronically Approved : 07/08/2021 13:34:18
== END | disposition home or self-care (01) ==
LOC: LINQ 11:26
PROVIDERS: ATTEND Internal Medicine Cardiovascular Disease
DX: I48.91 Unspecified atrial fibrillation (principal); Z87.891 Personal history of nicotine dependence; Z79.899 Other long term (current) drug therapy
CPT/HCPCS: 33285; C1764; J3490